=== PATIENT | male | born 1945 | race Caucasian/White ===

== ENCOUNTER 2016-08-11 13:49 | Inpatient (IN) | payer OTHER ==
--- NOTE | ~2016-08-11 | DS ---
Discharge Summary [facility] [address] [place]. [address] NAME: KAITLIN JARVIS : 43 STATUS : DIS IN PAT#: [id number] AGE: 70 ADM/REG DATE : 08/11/16 MR#: [id number] REPORT SERV DATE: 08/25/16 DICTATED BY: SHAAN ELDER II DATE: 08/21/16 REPORT STATUS : Draft TRANSCRIBED BY: MODCuca DATE: 08/21/16 Data Collection from hospitalization DISCHARGE DIAGNOSIS(ES): 1. Left lower extremity radiculopathy, severe. 2. 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 3. Left lower extremity weakness. 4. Significant degeneration L2-L3. 5. Hypertension. 6. Hypercholesterolemia. 7. History of angina. 8. Depression. CONSULTATIONS: Evin Herrera APN PROCEDURES PERFORMED: Lumbar laminectomy and facetectomy for decompression of the L2 and L3 nerve roots; interbody arthrodesis L2-L3; application of prosthetic device, L2-L3; posterolateral arthrodesis, L2-L3; posterior nonsegmental instrumentation, L2-L3; use of local autograft, allograft substitute, and bone morphogenetic protein; use of the microscope and stereotactic spinal imaging, 08/13/2016. PATHOLOGY: Spine, lumbar bone, and tissue. Fibrocartilage consistent with intervertebral disk. Benign bone fragments with degenerative changes. MEDICATIONS: Norvasc 10 mg daily, docusate sodium 100 mg twice daily, Easy iron 200 mg daily, Neurontin 300 mg three times daily, Protonix 40 mg daily, Zocor 10 mg at bedtime, Flomax 0.4 mg after supper, Symbicort two puffs twice daily, Ventolin 2 puffs four times daily as needed, Tylenol 325 mg daily as needed, aspirin 81 mg daily, Robaxin 500 mg twice daily as needed, and oxycodone 10 mg one or two every four to six hours as needed. CONDITION AT DISCHARGE: Upon discharge, he did appear to be doing well and had no complaints. DISPOSITION: He was discharged home to continue a regular diet with activity as discussed. He was to call my office for a followup appointment. HOSPITAL COURSE: This 70-year-old male did very well with surgery on his neck. He reported severe back and leg pain now which was essentially not allowing him to stand and walk very far. He was seen in the office on 08/11/2016 and admitted for pain control and likely surgery secondary to intractable back and leg pain and left lower extremity weakness. Upon admission to the hospital, he had been placed on a regular diet, to be n.p.o. after midnight. He was continued on all home medications except for [place]. He had been placed on Dilaudid GARMENT FOLDER for pain control. He was also begun on Percocet 5/325 one every six hours as needed for severe pain, Valium 2 mg IV or orally every six hours as needed, and Zofran 4 mg IV every six hours as needed. Following the day of admission, he did appear to be doing well. He was afebrile and his vital signs were stable. Surgery had been discussed with the patient, and he was agreeable to proceed. He had also been seen by Evin Herrera for medical management. He agreed with current treatment plan. He did note that the patient's Discharge Summary [address] [place]. [address] NAME: KAITLIN JARVIS : 43 STATUS : DIS IN PAT#: [id number] AGE: 70 ADM/REG DATE : 08/11/16 MR#: [id number] REPORT SERV DATE: 08/25/16 DICTATED BY: SHAAN ELDER II DATE: 08/21/16 REPORT STATUS : Draft TRANSCRIBED BY: MITCH DATE: 08/21/16 blood pressure had been elevated overnight; however, this was noted to have been better after the addition of nitro paste and clonidine. He had no complaints of chest pain noted. He had also been placed on Flomax. On 08/13, he was taken to the operating room where he did undergo the above spinal procedure. He had tolerated this well and was transferred to the recovery room. Postoperatively, he did appear to be doing well and had no new complaints. On postop day 1, he denied any chest pain or shortness of breath. He was afebrile and his vital signs were stable. He was also noted to be eating and drinking without difficulty. His hemoglobin was stable at 12.1 and hematocrit 35.3. He was evaluated by Physical Therapy. On postop day #2, he did continue to do well and did state that he was ready to go home. However, he was noted to have some cough and did state that he felt like he could not get his sputum up. His WBCs were noted to have risen to 16.6. He did continue to do well and was then discharged with the above instructions. Information collected by: Uriah Leal. I submit the above information as my discharge summary. RAHUL/MITCH Shaan Elder II, M.D. / [id number] CC: Naima Wilkes II, MADELINE T.
--- NOTE | ~2016-08-11 | HP ---
History And Physical [address] [place]. [address] NAME: KAITLIN JARVIS : 43 STATUS : ADM IN PAT#: [id number] AGE: 70 ADM/REG DATE : 08/11/16 MR#: [id number] REPORT SERV DATE: 08/12/16 DICTATED BY: SHAAN GANDHI II DATE: 08/12/16 REPORT STATUS : Draft TRANSCRIBED BY: MITCH DATE: 08/12/16 DATE OF ADMISSION: 08/11/2016 CHIEF COMPLAINT: Severe low back and left lower extremity pain. HISTORY OF PRESENT ILLNESS: A friendly gentleman who did very well with surgery on his neck. He reports severe back and leg pain now, which is essentially not allowing him to stand and walk very far. He was seen in the office on 08/11/2016 and admitted for pain control, and likely surgery secondary to intractable back and leg pain and left lower extremity weakness. PAST MEDICAL HISTORY: Positive for cataracts, angina, high cholesterol, hypertension, history of kidney stones, and depression. He has also had a history of umbilical hernia. SOCIAL HISTORY: He lives with his grandson. MEDICATIONS: Please see the MAR. REVIEW OF SYSTEMS: Denies any bowel or bladder changes. PHYSICAL EXAMINATION: GENERAL: Reveals a gentleman in mild distress. He is awake, alert, and oriented. NECK: Supple. LUNGS: He reveals no stridor on inspiration or expiration. CARDIOVASCULAR: Regular rate rhythm when I palpate the radial pulse. ABDOMEN: Soft. EXTREMITIES: On the left lower extremity, he does have weakness in the iliopsoas and quadriceps. He has sensory changes consistent with L2 and L3. IMAGING: The MRI reviewed shows significant stenosis with a large HNP at what I would call L2-L3. There is a transitional segment below. MEDICAL DECISION MAKING: A 70-year-old male with severe back and leg pain. He is being admitted for pain control, likely surgical intervention. We will have the hospitalist see him. KAYLAH/MITCH Shaan Gandhi II, M.D. / [id number] CC: History And Physical [address] [place] [facility] [address] NAME: KAITLIN JARVIS : 43 STATUS : ADM IN PAT#: [id number] AGE: 70 ADM/REG DATE : 08/11/16 MR#: [id number] REPORT SERV DATE: 08/12/16 DICTATED BY: SHAAN GANDHI II DATE: 08/12/16 REPORT STATUS : Draft TRANSCRIBED BY: MODL DATE: 08/12/16 Naima Wilkes II, Madeline T.
--- NOTE | ~2016-08-11 | OP ---
Record Of Operation [facility] [address] [place]. [address] NAME: KAITLIN JARVIS : 43 STATUS : ADM IN PAT#: [id number] AGE: 70 ADM/REG DATE : 08/11/16 MR#: [id number] REPORT SERV DATE: 08/13/16 DICTATED BY: SHAAN ELDER II DATE: 08/13/16 REPORT STATUS : Draft TRANSCRIBED BY: MODL DATE: 08/13/16 DATE OF PROCEDURE: 08/13/2016 PREOPERATIVE DIAGNOSES: 1. Left lower extremity radiculopathy, severe. 2. L2-3 stenosis (foraminal and lateral recess/central). 3. Left lower extremity weakness. 4. Significant degeneration L2-L3. POSTOPERATIVE DIAGNOSES: 1. Left lower extremity radiculopathy, severe. 2. L2-3 stenosis (foraminal and lateral recess/central). 3. Left lower extremity weakness. 4. Significant degeneration L2-L3. PROCEDURES: 1. Lumbar laminectomy and facetectomy for decompression of the L2 and L3 nerve roots. 2. Interbody arthrodesis L2-L3. 3. Application of prosthetic device, L2-L3. 4. Posterolateral arthrodesis, L2-L3. 5. Posterior nonsegmental instrumentation, L2-L3. 6. Use of local autograft, allograft substitute and bone morphogenic protein. 7. Use of the microscope and stereotactic spinal imaging. SURGEON: Dr. Shaan Elder. FLUIDS: 1 L lactated Ringer's. ESTIMATED BLOOD LOSS: 50 mL. DRAINS: One drain. COMPLICATIONS: None. ANTIBIOTIC: Preoperatively. IMPLANTS: Alphatec. PREOPERATIVE HISTORY: This is a very friendly 70-year-old gentleman, who is quite active who reports significant pain radiating into the buttock and leg consistent with the L2-L3 dermatomal distribution. He is also found to have leg weakness with leg buckling. We discussed the pros and cons of surgery. Overall, given his amount of back pain, that fusion was a reasonable consideration. Additionally, given the significant neural impingement, I felt that a fairly aggressive resection of the facet be required to adequately decompress. I discussed with him the risks and benefits of the surgery. He wished to proceed. Record Of Operation [facility] [address] [place]. [address] NAME: KAITLIN JARVIS : 43 STATUS : ADM IN PAT#: [id number] AGE: 70 ADM/REG DATE : 08/11/16 MR#: [id number] REPORT SERV DATE: 08/13/16 DICTATED BY: SHAAN ELDER II DATE: 08/13/16 REPORT STATUS : Draft TRANSCRIBED BY: MODCuca DATE: 08/13/16 DESCRIPTION OF PROCEDURE: After informed consent was obtained, the patient was brought to the operating room at his request and general anesthesia achieved. He was placed in the prone position and the back was prepped and draped in a sterile fashion. The stereotactic spinal pin was placed into the right iliac crest followed by completion of the intraoperative CT scan. The stereotactic guidance system was then used throughout the case. Next, the minimally invasive incision was performed on the left at L2-L3. The quadrant retractor was placed and the microscope brought into place and the facet capsule removed. The transverse processes at L2 and L3 were also dissected upon. At this point, the facet was now removed. The pars was now taken down and both the inferior and superior facets were removed. Overall, there was severe impingement upon the L2 nerve root. The L2 nerve root had a large lateral disk osteophyte complex severely compressing the exiting nerve root. The traversing nerve root was also impinged upon by the facet, but also an extruded piece of disk. At this point, both the L2 and L3 nerve roots were adequately decompressed, but again required the facetectomy. At this point, the interbody arthrodesis was initiated. The diskectomy was performed and the shaver was placed. The endplates were denuded of their cartilage. The wound was irrigated. Next, the local autograft and a small amount of bone morphogenic protein were placed into the anterior disk space. The prosthetic device was then well placed into L2-L3 disk space. This was an expandable type device. Next, the pedicle screws were applied bilaterally. The 7.5 mm diameter screws were placed. The percutaneous screws were placed on the right side followed by an intraoperative CT scan. This confirmed acceptable placement of the implants. The rods were then final tightened. Next, the decortication was performed of the left L2 and L3 transverse processes. The deep drain was placed followed by standard closure, and the patient was then extubated and transferred to PACU in stable condition. I also tried calling the family twice in the patient's room, but there was no answer. I will try and contact the family at some point later today. KAYLAH/MITCH Shaan Elder II, M.D. / [id number] CC: Naima Wilkes II, MADELINE T.
[~2016-08-11 13:49] MED LIST: ADVIL PO; ASAB PO; CARDCD180 PO; FLOMAX4 PO; HABIT21 TOP; NORV5 PO; P10 PO; PCET PO; PROTONIX PO; SYMBICORT 160/41 INH INH; T PO; V2 PO; VENTOLIN HFA INH; ZOCOR10 PO
[2016-08-11 16:57] LABS: BASOPHILS 0.4 %; BASOPHILS ABSOLUTE 0.03 10/3/uL (0.0-0.16); EOSINOPHILS 3.6 %; EOSINOPHILS ABSOLUTE 0.25 10/3/uL (0.0-0.53); HEMATOCRIT 35.5 % (40.0-51.0); HEMOGLOBIN 11.9 g/dL (13.6-17.8); IMMATURE GRANULOCYTES 0.1 %; IMMATURE GRANULOCYTES ABSOLUTE 0.01 10/3/uL (0.0-0.11); LYMPHOCYTES 26.5 %; LYMPHOCYTES ABSOLUTE 1.86 10/3/uL (0.67-4.30); MEAN CORPUS HGB CONC 33.5 g/dL (32.0-36.0); MEAN CORPUSCULAR HEMOGLOB 31.4 pg (26.0-34.0); MEAN CORPUSCULAR VOLUME 93.7 fL (80-100); MEAN PLATELET VOLUME 9.6 fL (9.2-13.0); MONOCYTES 12.7 %; MONOCYTES ABSOLUTE 0.89 10/3/uL (0.21-1.20); NEUTROPHILS 56.7 %; NEUTROPHILS ABSOLUTE 3.99 10/3/uL (2.02-8.40); PLATELET COUNT 243 10/3/uL (150-400); RED CELL COUNT 3.79 10/6/uL (4.7-6.1)
[2016-08-11 16:58] LABS: MANUAL DIFF NO %
[2016-08-11 17:14] LABS: A/G RATIO 1.2 (0.7-1.9); ALBUMIN 3.3 G/DL (3.5-5.0); ALKALINE PHOSPHATASE 52 U/L (45-117); BUN (BLOOD UREA NITROGEN) 18 MG/DL (6-23); CALCIUM, SERUM 8.3 MG/DL (8.5-10.4); CHLORIDE, SERUM 109 MMOL/L (96-112); CO2 (CARBON DIOXIDE) 31 MMOL/L (24-34); CREATININE 1.16 MG/DL (0.70-1.30); GFR AFRICAN AMERICAN 73 ML/MIN (>=60); GFR NON AFRICAN AMERICAN 63 ML/MIN (>=60); GLOBULIN 2.8 G/DL (2.5-4.1); GLUCOSE, SERUM 85 MG/DL (60-99); POTASSIUM, SERUM 3.9 MMOL/L (3.5-5.3); SGPT(ALT) 10 U/L (5-65); SODIUM, SERUM 143 MMOL/L (135-148); TOTAL BILIRUBIN 0.2 MG/DL (0-1.2); TOTAL PROTEIN 6.1 G/DL (6.0-8.5)
[2016-08-11 17:15] LABS: SGOT(AST) 9 U/L (5-40)
[2016-08-12] MEDS ORDERED: NORV5 PO (14:25)
[2016-08-12] MEDS ORDERED: EZFE 200200 MG PO (14:25)
[2016-08-12] MEDS ORDERED: NEUR300 PO (14:25)
[2016-08-12] MEDS ORDERED: METHOC500B PO (14:25)
[2016-08-14 05:01] LABS: BASOPHILS 0 %; EOSINOPHILS 0 %; HEMATOCRIT 35.3 % (40.0-51.0); HEMOGLOBIN 12.1 g/dL (13.6-17.8); IMMATURE GRANULOCYTES 0.2 %; IMMATURE GRANULOCYTES ABSOLUTE 0.02 10/3/uL (0.0-0.11); LYMPHOCYTES 3.6 %; LYMPHOCYTES ABSOLUTE 0.42 10/3/uL (0.67-4.30); MEAN CORPUS HGB CONC 34.3 g/dL (32.0-36.0); MEAN CORPUSCULAR HEMOGLOB 31.8 pg (26.0-34.0); MEAN CORPUSCULAR VOLUME 92.7 fL (80-100); MEAN PLATELET VOLUME 9.5 fL (9.2-13.0); MONOCYTES 2.6 %; MONOCYTES ABSOLUTE 0.31 10/3/uL (0.21-1.20); NEUTROPHILS 93.6 %; NEUTROPHILS ABSOLUTE 10.96 10/3/uL (2.02-8.40); PLATELET COUNT 221 10/3/uL (150-400); RBC DISTRIBUTION WIDTH 13.4 % (12.0-16.0); RED CELL COUNT 3.81 10/6/uL (4.7-6.1)
[2016-08-14 05:02] LABS: MANUAL DIFF NO %; WHITE BLOOD CELLS 11.7 10/3/uL (4.5-10.5)
[2016-08-14 05:18] LABS: BUN (BLOOD UREA NITROGEN) 24 MG/DL (6-23); CALCIUM, SERUM 8.7 MG/DL (8.5-10.4); CHLORIDE, SERUM 108 MMOL/L (96-112); CO2 (CARBON DIOXIDE) 21 MMOL/L (24-34); CREATININE 1.25 MG/DL (0.70-1.30); GFR AFRICAN AMERICAN 67 ML/MIN (>=60); GFR NON AFRICAN AMERICAN 58 ML/MIN (>=60); GLUCOSE, SERUM 183 MG/DL (60-99); POTASSIUM, SERUM 4.6 MMOL/L (3.5-5.3); SODIUM, SERUM 139 MMOL/L (135-148)
[2016-08-15 04:56] LABS: BASOPHILS 0 %; EOSINOPHILS 0 %; HEMATOCRIT 33.7 % (40.0-51.0); HEMOGLOBIN 11.4 g/dL (13.6-17.8); IMMATURE GRANULOCYTES 0.3 %; IMMATURE GRANULOCYTES ABSOLUTE 0.05 10/3/uL (0.0-0.11); LYMPHOCYTES 4.4 %; LYMPHOCYTES ABSOLUTE 0.73 10/3/uL (0.67-4.30); MEAN CORPUS HGB CONC 33.8 g/dL (32.0-36.0); MEAN CORPUSCULAR HEMOGLOB 31.8 pg (26.0-34.0); MEAN CORPUSCULAR VOLUME 93.9 fL (80-100); MONOCYTES 7.8 %; MONOCYTES ABSOLUTE 1.29 10/3/uL (0.21-1.20); NEUTROPHILS 87.5 %; NEUTROPHILS ABSOLUTE 14.48 10/3/uL (2.02-8.40); PLATELET COUNT 249 10/3/uL (150-400); RBC DISTRIBUTION WIDTH 13.7 % (12.0-16.0); RED CELL COUNT 3.59 10/6/uL (4.7-6.1)
[2016-08-15 04:58] LABS: WHITE BLOOD CELLS 16.6 10/3/uL (4.5-10.5)
[2016-08-15 04:59] LABS: MANUAL DIFF NO %
[2016-08-15 05:11] LABS: CALCIUM, SERUM 8.4 MG/DL (8.5-10.4); CHLORIDE, SERUM 111 MMOL/L (96-112); CO2 (CARBON DIOXIDE) 24 MMOL/L (24-34); CREATININE 1.17 MG/DL (0.70-1.30); GFR AFRICAN AMERICAN 72 ML/MIN (>=60); GFR NON AFRICAN AMERICAN 62 ML/MIN (>=60); GLUCOSE, SERUM 155 MG/DL (60-99); POTASSIUM, SERUM 4.8 MMOL/L (3.5-5.3); SODIUM, SERUM 144 MMOL/L (135-148)
[2016-08-15 05:13] LABS: BUN (BLOOD UREA NITROGEN) 34 MG/DL (6-23)
[2016-08-15] MEDS ORDERED: OXYCOD PO (13:41)
[2016-08-15] MEDS ORDERED: NORV10 PO (13:42)
== END 2016-08-15 15:17 | disposition home or self-care (01) | DRG 460 ==
LOC: 3SO 13:49
PROVIDERS: Nurse Practitioner; Nurse Practitioner Gerontology; Orthopaedic Surgery
PROC: 0SG00AJ Fusion of Lumbar Vertebral Joint with Interbody Fusion Device, Posterior Approach, Anterior Column, Open Approach (ICD-10-PCS; principal; 2016-08-11)
PROC: 4A11X4G Monitoring of Peripheral Nervous Electrical Activity, Intraoperative, External Approach (ICD-10-PCS; 2016-08-11)
DX: M51.16 Intervertebral disc disorders with radiculopathy, lumbar region (principal); J44.9 Chronic obstructive pulmonary disease, unspecified; I10 Essential (primary) hypertension; N40.0 Benign prostatic hyperplasia without lower urinary tract symptoms
CPT/HCPCS: 71010; 80048; 80053; 82962; 85025; 87641; 88304; 88311; 93005; 94640; 97161-GP; A9270-GY; C1713; C1769; J0360; J0690; J1170; J2250; J2405; J2710; J3010